=== PATIENT | female | born 1945 | race Caucasian/White ===

== ENCOUNTER → 2023-03-04 13:13 | Outpatient (BNVA) | payer OTHER, MEDICARE, SELFPAY | PROVIDERS: PCP Internal Medicine; Visit Provider Nurse Practitioner Family | DX: G20 Parkinson's disease (principal); R26.9 Unspecified abnormalities of gait and mobility | CPT/HCPCS: 99212 ==

== ENCOUNTER 2023-09-04 14:37 | Outpatient (AMB) | payer MEDICARE, SELFPAY ==
[2023-09-04 14:50] VITALS: BP 128/70; BMI 23.3
--- NOTE | 2023-09-04 14:50 | MHC.OFFVIS ---
Intake Vital Signs 09/04/23 14:50 Height 5 ft 2 in Weight 127 lb 8 oz BMI 23.3 BP 128/70 Blood Pressure Location Rt brachial Position Sitting Intake Visit Reasons: 6m follow up/ LVM Intake Note: Patient presents for 6 month follow up Allergies No Known Allergies Allergy (Verified 09/04/23 14:53) Medication List - Last Reconciled 09/04/23 by LUPIS Berry carbidopa-levodopa 25-100 mg 1.5 tab qam, 1.5 tab q afternoon, 1 tab qhs orally .; 90 days carvedilol 12.5 mg PO BID furosemide 40 mg PO DAILY levetiracetam 750 mg PO BID potassium chloride ER 10 mEq PO DAILY valsartan mg PO warfarin 2.5 mg PO DAILY HPI HPI Comments History of Present Illness Details 77-yr-old female presents for f/u visit, accompanied by her dtr. Pt's current PD medication regimen: CD-LD 25-100mg 1.5-1.5-1 tab)s) Do medication effects last between doses: Unsure Pt's primary concerns are: Pt would like to discuss diagnostic options to confirm PD dx. Pt has had a recent PNA vs CHF. Pt has been having more HTN. ADL's: Ind. Writing is more shaky but legible. Swallowing: None Cough: None Drooling: None Orthostatic lightheadedness: Denies. But does has some brief dyspnea upon lying down. Constipation: None : Some mild urinary incontinence Freezing: Not sure Stiffness: None Tremor: None Falls: None. Using a 4-wheeled walker now. Feels imbalanced w/o her walker. Hallucinations: None Memory: Some repeating. But no significant STM difficulties. Sleep: Sleeps well. Exercise: Not much exercise. [facility] Medical History (Updated 09/08/23 @ 19:08 by LUPIS Berry) HLD (hyperlipidemia) HTN (hypertension) Stroke Headache Seizure A-fib Surgical History History of permanent cardiac pacemaker placement Family History Mother Heart disease A-fib Lung mass Social History Household Members: Spouse Alcohol intake: never Patient Tobacco Use Status: Never used Tobacco Tobacco use type: Cigarette Review of Systems Const All systems reviewed & are unremarkable except as noted in HPI and below Physical Exam Vital Signs: Last Vital Signs BP 128/70 09/04/23 14:50 BMI result Body Mass Index 23.3 Const General: cooperative and no acute distress Resp Effort & Inspection: normal respiratory effort and able to speak in complete sentences Neuro Other: General: A&O x's 3 Expression: Mild decreased expression Voice: Soft voice Tremor: None Tone: Mild BUE tone Dyskinesia: None FFM: Mild bradykinesia Foot taps: Mild bradykinesia Gait: Slow to stand, decreased arm swing, very short steps w/ low floor clearance w/o walker, short steps but btter and more steady with walker. Psych: Pleasant affect, cooperative Assessment & Plan Assessment & Plan (1) Parkinson's disease: Code(s): G20 - Parkinson's disease (2) Gait difficulty: Code(s): R26.9 - Unspecified abnormalities of gait and mobility (3) Urinary incontinence: Code(s): R32 - Unspecified urinary incontinence (4) Stroke: Comment: stroke f/b 1 seizure (late )- initially treated with Phenytoin and then switched over to Keppra- no residual effect from stroke Code(s): I63.9 - Cerebral infarction, unspecified Plan Increase Sinemet 25-100mg from 1.5-1.5-1 tab(s) to 2 - 1.5 - 1. Walk w/ walker. Brain MRI w/o- to assess for NPH, status of CV vascular ischemia burden. DaTscan to assess for dopaminergic deficits in basal ganglia ? f/u in 6 months or sooner prn. Orders: Orders MR head/brain wo con 09/04/23 G20.A1 - Parkinson's disease without dyskinesia, without mention of fluctuations, I63.9 - Cerebral infarction, unspecified, R26.9 - Unspecified abnormalities of gait and mobility DaTscan 09/04/23 G20 - Parkinson's disease, I63.9 - Cerebral infarction, unspecified, R26.9 - Unspecified abnormalities of gait and mobility Medications: Changed From carbidopa-levodopa 25-100 mg 1.5 tab qam, 1.5 tab q afternoon, 1 tab qhs orally .; 90 days 360 tabs 1RF To carbidopa-levodopa 25-100 mg 2 tabs qam, 1.5 tabs q afternoon, 1 tab qhs orally .; 90 days 405 tabs 1RF Coding Level of Care Code Est Pt Level 4 (12955) Diagnoses Parkinson's disease G20 Gait difficulty R26.9 Urinary incontinence R32 Stroke I63.9
== END 2023-09-04 15:34 | disposition home or self-care (01) ==
PROVIDERS: PCP Internal Medicine; Visit Provider Nurse Practitioner Family
DX: G20.A1 Parkinson's disease without dyskinesia, without mention of fluctuations (principal); R26.9 Unspecified abnormalities of gait and mobility; R32 Unspecified urinary incontinence; Z86.73 Personal history of transient ischemic attack (TIA), and cerebral infarction without residual deficits
CPT/HCPCS: 99214

== ENCOUNTER → 2023-09-04 14:37 | Outpatient (BNVA) | payer MEDICARE, SELFPAY | PROVIDERS: PCP Internal Medicine; Visit Provider Nurse Practitioner Family | DX: G20.A1 Parkinson's disease without dyskinesia, without mention of fluctuations (principal); R26.9 Unspecified abnormalities of gait and mobility; R32 Unspecified urinary incontinence; Z86.73 Personal history of transient ischemic attack (TIA), and cerebral infarction without residual deficits | CPT/HCPCS: 99212 ==

== ENCOUNTER 2024-03-03 15:58 | Outpatient (AMB) | payer MEDICARE, SELFPAY ==
--- NOTE | 2024-03-03 15:59 | MHC.OFFVIS ---
Intake Visit Reasons: 6 mo f/u-LVM Intake Note: Patient has no issues or concerns Allergies No Known Allergies Allergy (Verified 03/03/24 15:59) Medication List - Last Reconciled 03/03/24 by LUPIS Berry carbidopa-levodopa 25-100 mg 2 tabs qam, 1.5 tabs q afternoon, 1 tab qhs orally .; 90 days carvedilol 12.5 mg PO BID furosemide 40 mg PO DAILY levetiracetam 750 mg PO BID potassium chloride ER 10 mEq PO DAILY valsartan mg PO warfarin 2.5 mg PO DAILY HPI Comments Details: 78-yr-old female presents for f/u televideo visit via [email or web address], accompanied by her dtr. Pt's current PD medication regimen: CD-LD 25-100mg 2 - 1.5 - 1 tab(s). Do medication effects last between doses: Unsure Pt's primary concerns are: Pt would like to discuss diagnostic options to confirm PD dx. Pt did not have brain MRI d/t pacemaker is not MRI compatible- thus, order was placed for Head CT, however they decided not to have this done- as results would not likely chnage plan. Pt has an increase in carvedilol and valsartan doses- her BP is improved w/ SBP 140s. Recent echocardiogram- stable valvular dz and cardiomyopathy- suspected to be d/t h/o rheumatic fever. She has good days and bad days. Overall tries to be cautious. ADL's: Ind. Writing is a little smaller. Voice- softer Swallowing: No issues Cough: None Drooling: None Orthostatic lightheadedness: Denies. Constipation: None : Some mild urinary incontinence- not frequent, maybe some functional/stress inc- is on Furosemide. Freezing: Some slowness, seems stuck can occur through doorways, crossing an elevator threshold, and going down the stairs. Has stairs to leave her home- lives in a single family 2 story home but the kitchen and bedroom are upstairs. Stiffness: None Tremor: None Falls: None. Using a 4-wheeled walker now. Feels imbalance w/o her walker. Hallucinations: None Memory: Some repeating. But no significant STM difficulties. Able to use her tablet, able to pay her bills. Sleep: Sleeps well. Exercise: Not much exercise. PFSH Medical History (Updated 11/27/23 @ 09:42 by LUPIS Berry) Parkinson's disease HLD (hyperlipidemia) HTN (hypertension) Stroke Headache Seizure A-fib Surgical History History of permanent cardiac pacemaker placement Family History Mother Heart disease A-fib Lung mass Social History Household Members: Spouse Alcohol intake: never Patient Tobacco Use Status: Never used Tobacco Tobacco use type: Cigarette Physical Exam Const General: cooperative and no acute distress Resp Effort & Inspection: normal respiratory effort and able to speak in complete sentences Neuro Other: General: A&O x's 3 Expression: Slight decrease expression Voice: Soft voice Telehealth Telehealth Telehealth Platform: [email or web address] Location of provider rendering services: practice address Location of patient: address on file Patient Identification confirmed using: Name, : Yes Telehealth method: video Patient verbally consented to treatment: Yes Patient verbally consented to billing insurance company: Yes Patient informed of any privacy concerns related to visit: Yes Minutes spent on Phone/Video with Pt.: 23 Assessment & Plan Assessment & Plan (1) Parkinson's disease without dyskinesia: Code(s): G20.A1 - Parkinson's disease without dyskinesia, without mention of fluctuations Category: Medical (2) Gait difficulty: Code(s): R26.9 - Unspecified abnormalities of gait and mobility Category: Medical Plan Continue Sinemet 25-100mg- 2 - 1.5 - 1 tabs. Walk w/ walker. Try tapping hip or stepping inplace when stuck. Hold Brain MRI and CT orders. Will re-order DaTscan to assess for dopaminergic deficits in basal ganglia Consider revisiting PT for gait eval. ? f/u in 6 months or sooner prn. Orders: Orders DaTscan Today G20.A1 - Parkinson's disease without dyskinesia, without mention of fluctuations, I63.9 - Cerebral infarction, unspecified, R26.9 - Unspecified abnormalities of gait and mobility Coding Level of Care Code Tele Est Pt Level 4 (99503) Diagnoses Parkinson's disease without dyskinesia G20.A1 Gait difficulty R26.9
== END 2024-03-03 16:30 | disposition home or self-care (01) ==
LOC: HO.HSMS 15:58
PROVIDERS: PCP Internal Medicine; Visit Provider Nurse Practitioner Family
DX: G20.A2 Parkinson's disease without dyskinesia, with fluctuations (principal); R26.9 Unspecified abnormalities of gait and mobility
CPT/HCPCS: 99214

== ENCOUNTER → 2024-03-03 15:58 | Outpatient (BNVA) | payer MEDICARE, SELFPAY | PROVIDERS: PCP Internal Medicine; Visit Provider Nurse Practitioner Family ==

== ENCOUNTER 2024-09-22 08:12 | Outpatient (AMB) | payer MEDICARE, SELFPAY ==
--- NOTE | 2024-09-22 08:12 | A.OFFVIS_ITS ---
Intake Visit Reasons: Follow up - Facetime Intake Note: patient presents for follow up Allergies No Known Allergies Allergy (Verified 09/22/24 08:12) Medication List - Last Reconciled 09/22/24 by LUPIS Berry carbidopa-levodopa 25-100 mg 2 tabs qam, 2 tabs q afternoon, 1 tab qhs orally 90 days carvedilol 12.5 mg PO BID furosemide 40 mg PO DAILY levetiracetam 750 mg PO BID memantine 7 mg PO DAILY 30 days potassium chloride ER 10 mEq PO DAILY valsartan mg PO warfarin 2.5 mg PO DAILY HPI Comments Details: 78-yr-old female presents for f/u televideo visit via [employer], accompanied by her dtr. Pt's current PD medication regimen: CD-LD 25-100mg 2 - 1 - 1 tab(s)- does not like to cut the tabs. Do medication effects last between doses: Unsure Pt's primary concerns are: Pt would like to discuss diagnostic options to confirm PD dx. 04/23/2024 brain alex SPECT study: Decreased activity in the right basal ganglia, specifically within the right putamen with adequate radiotracer uptake at the right caudate nucleus. Left basal ganglia normal appearance. She has good days and bad days. Overall tries to be cautious. ADL's: Ind. Writing is a little smaller. Voice- softer Swallowing: No issues Cough: None Drooling: None Orthostatic lightheadedness: Denies. Constipation: None- more prone to loose stools. : Some mild urinary incontinence- not frequent, stress inc- is on Furosemide. Freezing: Stable- some slowness, seems stuck can occur through doorways, crossing an elevator threshold, and going down the stairs. Has stairs to leave her home- lives in a single family 2 story home but the kitchen and bedroom are upstairs. Stiffness: None Tremor: None Falls: None. Using a 4-wheeled walker now. Feels imbalance w/o her walker. Hallucinations: None Memory: Some repeating herself- however patient does not recall repeating herself. Patient denies significant STM difficulties. Able to use her tablet, able to pay her bills. Daughter reports patient has a history of anemia. Daughter wonders if we could consider a trial of donepezil. Sleep: Sleeps well. Exercise: Not much exercise. PFSH Medical History (Updated 09/22/24 @ 12:48 by LUPIS Berry) Anemia Parkinson's disease HLD (hyperlipidemia) HTN (hypertension) Stroke Headache Seizure A-fib Surgical History History of permanent cardiac pacemaker placement Family History Mother Heart disease A-fib Lung mass Social History Household Members: Spouse Alcohol intake: never Patient Tobacco Use Status: Never used Tobacco Tobacco use type: Cigarette Physical Exam Const General: cooperative and no acute distress Resp Effort & Inspection: normal respiratory effort and able to speak in complete sentences Neuro Other: General: A&O x's 3 Expression: Slight decrease expression Voice: Soft voice Telehealth Telehealth Telehealth Platform: [employer] Location of provider rendering services: practice address Location of patient: address on file Patient Identification confirmed using: Name, : Yes Telehealth method: video Patient verbally consented to treatment: Yes Patient verbally consented to billing insurance company: Yes Patient informed of any privacy concerns related to visit: Yes Minutes spent on Phone/Video with Pt.: 44 Assessment & Plan Assessment & Plan (1) Parkinson's disease without dyskinesia: Code(s): G20.A1 - Parkinson's disease without dyskinesia, without mention of fluctuations Category: Medical (2) Gait difficulty: Code(s): R26.9 - Unspecified abnormalities of gait and mobility Category: Medical (3) Cognitive changes: Code(s): R41.89 - Other symptoms and signs involving cognitive functions and awareness Category: Medical Plan Reviewed DaTscan results: Consistent with dopaminergic deficit in the right basal ganglia, likely PD versus vascular PD, which is likely contributing to patient's gait disorder. Increase CD-LD IR 25-100mg from 2 - 1.5 - 1 tabs to 2 - 2 -1- in hopes this helps gait. Walk w/ walker. Try tapping hip or stepping inplace when stuck. Discuss referring patient for home PT, however patient declines as she does not want anybody coming to the house. Will check labs for common etiologies of cognitive symptoms- repeating herself and mild STM lapses. Will mail lab slips patient. Encourage patient to engage in regular cognitive and socially stimulating activities. Stress importance of regular physical activity for cognitive well- being. Would avoid donepezil use due to current cardiovascular symptoms. Start memantine ER 7 mg q.d. times 30 days, then will increase to 14 mg q.d. for 30 days, then 21 mg q.d. for 30 days, and then 28 mg q.d. patient and daughter will update us with any untoward effects. ? f/u in 6 months or sooner prn. Orders: Orders Complete Blood Count Auto Diff Today D64.9 - Anemia, unspecified, D69.6 - Thrombocytopenia, unspecified, G20.A1 - Parkinson's disease without dyskinesia, without mention of fluctuations Comprehensive Met. Panel Today D64.9 - Anemia, unspecified, D69.6 - Thrombocytopenia, unspecified, G20.A1 - Parkinson's disease without dyskinesia, without mention of fluctuations Homocysteine Today D64.9 - Anemia, unspecified, D69.6 - Thrombocytopenia, unspecified, G20.A1 - Parkinson's disease without dyskinesia, without mention of fluctuations Vitamin B12 and Folate Today D64.9 - Anemia, unspecified, D69.6 - Thrombocytopenia, unspecified, G20.A1 - Parkinson's disease without dyskinesia, without mention of fluctuations TSH reflex Free T4 Today D64.9 - Anemia, unspecified, D69.6 - Thrombocytopenia, unspecified, G20.A1 - Parkinson's disease without dyskinesia, without mention of fluctuations Erythrocyte Sedimentation Rate Today D64.9 - Anemia, unspecified, D69.6 - Thrombocytopenia, unspecified, G20.A1 - Parkinson's disease without dyskinesia, without mention of fluctuations Methylmalonic Acid Today D64.9 - Anemia, unspecified, D69.6 - Thrombocytopenia, unspecified, G20.A1 - Parkinson's disease without dyskinesia, without mention of fluctuations IRON PROFILE Today D64.9 - Anemia, unspecified, D69.6 - Thrombocytopenia, unspecified, G20.A1 - Parkinson's disease without dyskinesia, without mention of fluctuations Ferritin Today D64.9 - Anemia, unspecified, D69.6 - Thrombocytopenia, unspecified, G20.A1 - Parkinson's disease without dyskinesia, without mention of fluctuations Syphilis Screen Today D64.9 - Anemia, unspecified, D69.6 - Thrombocytopenia, unspecified, G20.A1 - Parkinson's disease without dyskinesia, without mention of fluctuations CRP High Sensitivity Today D64.9 - Anemia, unspecified, D69.6 - Thrombocytopenia, unspecified, G20.A1 - Parkinson's disease without dyskinesia, without mention of fluctuations Folate Today D64.9 - Anemia, unspecified, D69.6 - Thrombocytopenia, unspecified, G20.A1 - Parkinson's disease without dyskinesia, without mention of fluctuations Medications: New memantine then stop and increase to 14mg qd 7 mg PO DAILY 30 ea 0RF 30 days Changed From carbidopa-levodopa 25-100 mg 2 tabs qam, 1.5 tabs q afternoon, 1 tab qhs orally .; 90 days 405 tabs 1RF To carbidopa-levodopa 25-100 mg 2 tabs qam, 2 tabs q afternoon, 1 tab qhs orally 450 tabs 1RF 90 days Coding Level of Care Code Tele Est Pt Level 4 (47301) Diagnoses Parkinson's disease without dyskinesia G20.A1 Gait difficulty R26.9 Cognitive changes R41.89
== END 2024-09-25 08:46 | disposition home or self-care (01) ==
LOC: HO.HSMS 08:12
PROVIDERS: PCP Internal Medicine; Visit Provider Nurse Practitioner Family
DX: G20.A1 Parkinson's disease without dyskinesia, without mention of fluctuations (principal); R26.9 Unspecified abnormalities of gait and mobility; R41.89 Other symptoms and signs involving cognitive functions and awareness
CPT/HCPCS: 99215

== ENCOUNTER 2025-08-31 08:55 | Outpatient (AMB) | payer MEDICARE, SELFPAY ==
--- NOTE | 2025-08-31 08:41 | A.OFFVIS_ITS ---
Intake Visit Reasons: med follow up Intake Note: patient presents for follow up User Interface Designer Required: No Accompanied by: Daughter Allergies No Known Allergies Allergy (Verified 09/22/24 08:12) Medication List - Last Reconciled 08/31/25 by LUPIS Berry atorvastatin (Lipitor) 40 mg PO BEDTIME carbidopa-levodopa 25-100 mg 2 tabs qam, 2 tabs q afternoon, 1 tab qhs orally 90 days carvedilol 12.5 mg PO BID furosemide 40 mg PO DAILY levetiracetam 750 mg PO BID 30 days memantine 10 mg PO BID 30 days potassium chloride ER 10 mEq PO DAILY spironolactone 25 mg PO DAILY valsartan mg PO warfarin 2.5 mg PO DAILY HPI Comments Details: 79-yr-old female presents for f/u televideo visit via [employer], accompanied by her dtr. Interval medical changes: pacemaker repair, which was followed by episodes of hypotension, which have since resolved. Pt's current PD medication regimen: CD-LD 25-100mg 2 - 2 - 1 tab(s)- does not like to cut the tabs. Do medication effects last between doses: Unsure Pt's primary concerns are: No specific concerns today, patient is doing overall better. 04/23/2024 brain alex SPECT study: Decreased activity in the right basal ganglia, specifically within the right putamen with adequate radiotracer uptake at the right caudate nucleus. Left basal ganglia normal appearance. ADL's: Ind. Writing is a little smaller. Still cooks- but may need to sit for longer prep times. Voice- softer Swallowing: Over the summer, when eating ice cream, she would have some episodes of esophageal spasm. In the past few weeks, she also has postprandial epigastric discomfort. Her dtr notes she does not tend to eat large meals. Denies NSAID use d/t warfarin tx. Cough: None Drooling: None Orthostatic lightheadedness: Denies. Constipation: None- more prone to loose stools. : Some mild urinary incontinence- not frequent, stress inc- is on Furosemide. Freezing: Stable- some slowness through doorways and stairs. Dtr states has been walking a bit better more recently. Has stairs to leave her home- lives in a single family 2 story home but the kitchen and bedroom are upstairs. Stiffness: None Tremor: None Falls: Using a 4-wheeled walker now. Feels imbalanced w/o her walker. Dtr has a transport w/c for longer distances. Hallucinations: None Memory: Some repeating herself- but pt feels her memory is fine. May take her memantine QOD. Patient denies significant STM difficulties. Able to use her tablet, able to pay her bills. Sleep: Sleeps well. Exercise: Not much exercise. [facility] Medical History (Updated 08/31/25 @ 09:25 by LUPIS Berry) Anemia Parkinson's disease HLD (hyperlipidemia) HTN (hypertension) Stroke Headache Seizure A-fib Surgical History History of permanent cardiac pacemaker placement Family History Mother Heart disease A-fib Lung mass Social History Household Members: Spouse Alcohol intake: never Patient Tobacco Use Status: Never used Tobacco Tobacco use type: Cigarette Physical Exam Const General: cooperative and no acute distress Resp Effort & Inspection: normal respiratory effort and able to speak in complete sentences Neuro Other: General: A&O x's 3 Expression: Slight decrease expression Voice: Soft voice Tremor: none Telehealth Telehealth Telehealth Platform: [employer] Location of provider rendering services: practice address Location of patient: address on file Patient Identification confirmed using: Name, : Yes Telehealth method: video Patient verbally consented to treatment: Yes Patient verbally consented to billing insurance company: Yes Patient informed of any privacy concerns related to visit: Yes Minutes spent on Phone/Video with Pt.: 18 Assessment & Plan Assessment & Plan (1) Parkinson's disease without dyskinesia: Code(s): G20.A1 - Parkinson's disease without dyskinesia, without mention of fluctuations Category: Medical Qualifiers: Fluctuating manifestations: without fluctuating manifestations Qualified Code(s): G20.A1 - Parkinson's disease without dyskinesia, without mention of fluctuations (2) Gait difficulty: Code(s): R26.9 - Unspecified abnormalities of gait and mobility Category: Medical (3) Cognitive changes: Code(s): R41.89 - Other symptoms and signs involving cognitive functions and awareness Category: Medical Plan Continue CD-LD IR 25-100mg tab, 2 - 2 -1 Walk w/ walker. Try tapping hip or stepping inplace when stuck. Encourage patient to engage in regular physical, cognitive and socially stimulating activities. Stress importance of regular physical activity for cognitive well-being. Continue Memantine ER 28 mg q.d. p Daughter request handicap parking placard form be completed, we will complete once available to us? f/u in 6 months or sooner prn. Medications: Refilled carbidopa-levodopa 25-100 mg 2 tabs qam, 2 tabs q afternoon, 1 tab qhs orally 450 tabs 4RF 90 days Coding Level of Care Code Tele Est Pt Level 4 (73646) Diagnoses Parkinson's disease without dyskinesia or fluctuating manifestations G20.A1 Fluctuating manifestations: without fluctuating manifestations Gait difficulty R26.9 Cognitive changes R41.89
--- OUTSIDE RECORDS SUMMARY | 2025-08-31 09:14 | XMS_ITS | Clinical Summary ---
Author Organization [address] [place] [address] [place] [phone] Phone Care Team Providers Care Special Deputy Sheriff Name Role Phone Tulio Jacobsen MD Primary Care Provider [phone] Allergies No known active allergies Medications levETIRAcetam (KEPPRA) 750 mg tablet Take 1 Tablet by mouth 2 Times Daily. 4 Active carbidopa-levod opa (SINEMET) 25-100 mg per tablet Take 2 Tablets by mouth every morning. 1 tablet in the aternoon and one tablet at night Active atorvastatin (LIPITOR) 40 mg tablet Take 1 Tablet by mouth at bedtime. 4 Active dorzolamide-craig oloL (COSOPT) 22.3-6.8 mg/mL ophthalmic solution Place 1 Drop into both eyes 2 times daily. 1 Active latanoprost (XALATAN) 0.005 % ophthalmic solution Place 1 Drop into both eyes at bedtime. INSTILL 1 DROP IN BOTH EYES AT BEDTIME 1 Active brimonidine (ALPHAGAN) 0.2 % ophthalmic solution Place 1 Drop into both eyes 2 times daily. 1 Active cyanocobalamin, vitamin B-12, (VITAMIN B-12 ORAL) Take by mouth. Three days a week Active potassium chloride (KLOR-CON M20) 20 mEq CR tablet Take 1 tablet (20 mEq total) by mouth 1 (one) time each day. Tablet may be swallowed whole (do not crush/chew/suck on) OR broken in half and each half swallowed separately OR dissolved (whole tablet) in ~4 ounces of water (allow ~2 minutes to dissolve, stir well and administer immediately). Active furosemide (LASIX) 40 mg tablet Take 1 tablet (40 mg total) by mouth 1 (one) time each day. 90 each 3 5 03/31/20 26 Active warfarin (COUMADIN) 2.5 mg tablet Take 2 tablets (5 mg total) by mouth 1 (one) time each day with dinner. 180 tablet 1 5 Active carvediloL (COREG) 12.5 mg tablet Take 1 tablet (12.5 mg total) by mouth 2 (two) times a day with meals. 180 tablet 3 5 Active spironolactone (ALDACTONE) 25 mg tablet TAKE 0.5 TABLETS BY MOUTH 1 TIME EACH DAY. 45 tablet 3 5 Active Active Problems Problem Noted Date Diagnosed Date Atrial fibrillation ([facility] V24, [facility] V28) 1 10/05/2023 Overview (03/31/2025): AV Erum ablation Single-chamber pacemaker, lead replacement and generator change 12/2024 Anticoagulated with Coumadin Assessment & Plan (08/12/2025 1:50 PM EST): Continue Coumadin in light of valvular atrial fibrillation for CVA prophylaxis, status post AV node ablation with pacemaker Assessment & Plan (03/31/2025 10:18 PM EDT): The patient's heart rate is supported post AV erum ablation by her pacemaker. Her breathlessness improved with lead replacement and generator change raising a question of inadequate pacing as a possible etiology of at least some of her breathlessness. Continue in office surveillance. Remote monitoring has been offered to the patient, but historically, it has been cost prohibitive. Her daughter is looking into this Given her rheumatic mitral stenosis, anticoagulation with warfarin is her only option. She has not had any bleeding issues Assessment & Plan (12/28/2024 8:19 AM EDT): The patient's atrial fibrillation rate remains supported by her pacemaker. She is anticoagulated with Coumadin given her multivalve disease. Continue current treatment plan FDC (current) use of anticoagulants 2023 History of CVA (cerebrovascular accident) 2023 Gait disturbance 07/02/2021 Essential hypertension 01/16/2021 Assessment & Plan (08/12/2025 1:50 PM EST): Well-controlled on current regimen, continue Assessment & Plan (03/31/2025 10:15 PM EDT): Blood pressure reasonable to add back low-dose spironolactone. Continue her carvedilol and furosemide at current doses. Assessment & Plan (12/28/2024 8:23 AM EDT): Patient's blood pressure somewhat robust today on diuretic and ARB. 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 Reviewed possibility of referral for LITTLE of the tricuspid valve given severe tricuspid regurgitation. Though she does not appear to be in any kind of right heart failure at this time. Assessment & Plan (03/31/2025 10:18 PM EDT): The patient's echocardiogram is unchanged in the last year. 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 Her right sided heart failure symptoms seem to be well-managed with carvedilol, furosemide, and previously spironolactone. As such, we will resume her spironolactone and follow her labs. Assessment & Plan (12/28/2024 8:24 AM EDT): Update echocardiogram as above Vitamin D deficiency 09/02/2013 Hyperlipidemia with target LDL less than 70 05/31 Assessment & Plan (03/31/2025 10:18 PM EDT): Well-controlled lipid profile without known CAD on current dose statin. Continue Assessment & Plan (12/28/2024 8:24 AM EDT): Very well-controlled lipid profile without known CAD on current dose statin. Continue CKD (chronic kidney disease) stage 3, GFR 30-59 ml/min (CMS/HCC V24, CMS/HCC V28) 05/02/2012 Osteopenia 02/06/2010 Elevated serum alkaline phosphatase level 2009 Overview (08/26/2024): Elevated GGTP. Likley due to phenytoin use. Atrial thrombus 06/05/2009 Cardiac pacemaker in situ 09/17/2005 Overview (12/28/2024): - [employer] device placed in 2012 after AV node ablation Assessment & Plan (08/12/2025 1:50 PM EST): Continue device clinic follow-up. Device check performed today. Assessment & Plan (12/28/2024 8:20 AM EDT): The patient does not have remote monitoring of her pacemaker. Therefore, continue in office device checks. She will have her device check today following this appointment Congestive heart failure (CMS/HCC V24, CMS/[facility] V 28) 09/17/2005 Overview (08/12/2025): - Very difficult to gauge NYHA class due to baseline limited mobility, but likely NYHA class III heart failure symptoms at baseline -Updated echocardiogram 02/2025 shows normal LVEF 55 to 60%, mild concentric LVH, severely enlarged RV with normal RV systolic function, mildly thickened aortic valve leaflets, mild mitral stenosis with rheumatic appearing valve, severe TR and a small pericardial effusion, unchanged when compared to 12/2023 Assessment & Plan (08/12/2025 1:50 PM EST): Euvolemic on exam. Doing much better after her device revision. Will await results of today's device check. Continue current spironolactone, furosemide. I do not believe we have trialed her on SGLT2 inhibitor either. I will address this with Patricia when she sends me her [employer] message. There may have been a reason why we held off. I will plan to see her again in 6 months. Assessment & Plan (03/31/2025 10:16 PM EDT): From a heart failure standpoint, she appears euvolemic aside from left greater than right lower extremity edema. Her daughter tells me that spironolactone managed this edema previously quite well. 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 Given that her edema is bothersome, and her platelets have improved, will retry low-dose spironolactone 12.5 mg once a day, discontinue her potassium supplementation, and update a BMP and a CBC to follow her platelets in about a week's time. I will notify her daughter once results are available to me Assessment & Plan (12/28/2024 8:23 AM EDT): The patient has ongoing evidence of right-sided volume overload including ascites and lower extremity edema. She states that her breathlessness is at least somewhat worse than when I saw her last time. Dr. Samaniego would prefer to avoid SGLT2's until other options have been exhausted given lack of data with valvular heart disease. As such, will increase her furosemide to 40 mg daily as a permanent increase and then add spironolactone 12.5 mg daily after 7 days of increased diuretic. She will obtain a basic metabolic panel late next week. She can discontinue her potassium supplementation when she starts her spironolactone. The patient's daughter understands and agrees. Will update her echocardiogram in about 3 months time just prior to her next office visit. If she continues with excess volume, can switch her furosemide to either Bumex or torsemide which may have better bioavailability. But to start, will increase her furosemide Convulsions (CMS/HCC V24, CMS/HCC V28) 5 Resolved Problems Problem Noted Date Diagnosed Date Resolved Date SSS (sick sinus syndrome) ([facility] MS/HCC V24, CMS/HCC V28) 10/09/2023 08/12/2025 Overview (08/26/2024): Last Assessment & Plan: Normally functioning pacemaker. Continue in-office surveillance as per protocol. Mitral stenosis 09/17/2005 08/12/2025 Overview (03/31/2025): mild mitral stenosis with rheumatic appearing valve Assessment & Plan (03/31/2025 10:16 PM EDT): The patient continues with mild rheumatic mitral stenosis. Continue periodic surveillance Assessment & Plan (12/28/2024 8:23 AM EDT): Update her echocardiogram as above Encounters Date Type Department Care Team Description 08/19/2025 Telephone Coumadin [facility] - [address] [phone] Tulio Jacobsen MD 08/12/2025 11:00 AM EST Ancillary Procedure [facility] [address] [place] [address] Encounter for adjustment or management of cardiac device 08/12/2025 10:20 AM EST Office Visit [facility] [address] [place] [address] Danii Samaniego MD Chronic diastolic congestive heart failure (CMS/HCC V24, CMS/HCC V28) (Primary Dx); Longstanding persistent atrial fibrillation (CMS/HCC V24, CMS/HCC V28); Essential hypertension; Valvular heart disease; Cardiac pacemaker in situ 08/03/2025 Anticoagulation - Warfarin Visit Coumadin [address] [phone] Tulio Jacobsen MD Longstanding persistent atrial fibrillation (CMS/HCC V24, CMS/HCC V28) (Primary Dx); 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; History of CVA (cerebrovascular accident) 07/27/2025 Anticoagulation - Warfarin Visit Coumadin [address] [phone] Tulio Jacobsen MD Longstanding persistent atrial fibrillation (CMS/HCC V24, CMS/HCC V28) (Primary Dx); 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; History of CVA (cerebrovascular accident) 07/20/2025 Anticoagulation - Warfarin Visit [address] [phone] Tulio Jacobsen MD Longstanding persistent atrial fibrillation (CMS/HCC V24, CMS/HCC V28) (Primary Dx); 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; History of CVA (cerebrovascular accident) 07/12/2025 [facility] [address] [phone] Tulio Jacobsen MD Longstanding persistent atrial fibrillation (CMS/HCC V24, CMS/HCC V28) (Primary Dx); 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; History of CVA (cerebrovascular accident) 07/05/2025 Anticoagulation - Warfarin Visit [address] [phone] Sabra Kothari LPN Longstanding persistent atrial fibrillation (CMS/HCC V24, CMS/HCC V28) (Primary Dx); FDC (current) use of anticoagulants; History of CVA (cerebrovascular accident) 06/24/2025 Anticoagulation - Warfarin Visit [address] [phone] Tulio Jacobsen MD Longstanding persistent atrial fibrillation (CMS/HCC V24, CMS/HCC V28) (Primary Dx); FDC (current) use of anticoagulants; History of CVA (cerebrovascular accident) 06/14/2025 [facility] [address] [phone] Jenniffer Dunbar PA 06/14/2025 Anticoagulation - Warfarin Visit Coumadin [address] [phone] Sabra Kothari LPN Longstanding persistent atrial fibrillation (CMS/HCC V24, CMS/HCC V28) (Primary Dx); 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; History of CVA (cerebrovascular accident) 06/08/2025 4:00 PM EDT Office Visit Adult Medicine [address] [phone] Jenniffer Dunbar PA Essential hypertension (Primary Dx); Hyperlipidemia with target LDL less than 70; Vitamin D deficiency; Parkinson's disease, unspecified whether dyskinesia present, unspecified whether manifestations fluctuate (CMS/HCC V24, CMS/HCC V28); Atrial fibrillation, unspecified type (CMS/HCC V24, CMS/HCC V28); Thrombocytopenia (CMS/HCC V24) 06/07/2025 Anticoagulation - Warfarin Visit Coumadin [address] [phone] Sabra Kothari LPN Longstanding persistent atrial fibrillation (CMS/HCC V24, CMS/HCC V28) (Primary Dx); FDC (current) use of anticoagulants; History of CVA (cerebrovascular accident) from Last 3 Months Immunizations Immunization Administration Dates Next Due Influenza trivalent, 0.5mL ( Fluad) 65yo and older 07/09/2024,07/10/2022 Influenza trivalent, 0.5mL, preservative free (Fluarix; FluLaval; Fluzone) ages 6mo and older (Afluria) 3 years and older 06/18/2012,06/19/2010,07/28/2007 Pneumococcal conjugate 13 va lent (Prevnar 13, PCV13) 2mo and older 12/14/2016 Pneumococcal conjugate 20 va lent (Prevnar 20, PCV 20) 2mo and older 07/09/2024 Pneumococcal polysaccharide 23 valent (Pneumovax 23) 2yo and older 07/28/2007 Surgical History Surgery Date Site/Laterality Comments COLONOSCOPY 01/18/10 PROCEDURE: HISTORICAL COLONOSCOPY; COMMENT: diverticulosis; repeat in ten years OTHER SURGICAL HISTORY PROCEDURE: MT UNLISTED PROCEDURE CARDIAC SURGERY; COMMENT: erum ablation for atrial fibrillation, pacemaker Medical History Medical History Date Comments Atrial fibrillation ([facility] V24, [facility] V28) 09/17/2005 DX:Atrial fibrillation (HCC) Cardiac pacemaker in situ 09/17/2005 DX:Car diac pacemaker in situ Congestive heart failure, unspecified 09/17/2005 DX:Congestive heart failure, unspecified Pure hypercholesterolemia 09/17/2005 DX:Pur e hypercholesterolemia Cardiac pacemaker in situ 09/17/2005 DX:Car diac pacemaker in situ Atrial thrombus 06/05/2009 DX:Atrial thromb us Mitral stenosis 09/17/2005 DX:Mitral stenos is Other convulsions 09/17/2005 DX:Other convu lsions Osteopenia DX:Osteopenia Glaucoma DX:Glaucoma Thrombocytopenia ([facility] V24) D X:Thrombocytopenia (HCC) Family History Medical History Relation Name Comments Other: GI bleed Father Other: cardiac Mother Breast cancer Neg Hx Relation Name Status Comments Father Mother Social History Tobacco Use Types Packs/Day Years Used Date Smoking Tobacco: Never Smokeless Tobacco: Never Tobacco Cessation:Counseling Given: Not Answered Alcohol Use Standard Drinks/Week Comments No 0 (1 standard drink = 0.6 oz pur e alcohol) Housing Instability Answer Date Recorde d Are you worried that in the next 2 months you may not have stable housing? Patient declined 06/08/2025 Food Access & Nutrition Answer Date Rec orded Do you have access to a vari ety of food including fruits and vegetables? Patient declined 06/08/2025 Health Literacy Answer Date Recorded How often do you need to hav e someone help you when you read instructions, pamphlets, or other written material from your doctor or pharmacy? Patient declined 06/08/2025 Caregiver: How often do you need to have someone help you when you read instructions, pamphlets, or other written material from your doctor or pharmacy? Not on file 025 Financial Risk Answer Date Recorded How hard is it for you to pa y for the very basics like food, housing, medical care, and air conditioning / heating? Patient declined 06/08/2025 Transportation Answer Date Recorded Has the lack of transportati on kept you from meetings, work, or from getting things needed for daily living? Patient declined 06/08/2025 Has the lack of transportati on kept you from medical appointments or from getting medications? Patient declined 06/08/2025 Social Isolation Answer Date Recorded How often do you feel lonely or isolated from those around you? Patient declined 06/08/2025 Food Risk Answer Date Recorded Within the past 12 months we worried whether our food would run out before we got money to buy more. Patient declined 025 Within the past 12 months th e food we bought just didn't last and we didn't have money to get more. Patient declined 05/2025 Dependent Care Answer Date Recorded Do you need help finding or paying for care for your loved ones. For example, teacher early childhood development or elderly care for an older adult? Patient declined 06/08/2025 Education Answer Date Recorded Do you think completing more education or training, like finishing a GED, going to college, or learning a trade, would be helpful for you? Patient declined 06/08/2025 Employment and Income Answer Date Recor ded During the last four weeks, have you been actively looking for work? Patient declined 06/08/2025 Living Situation Answer Date Recorded What is your living situation? Unrecognized valu e 06/08/2025 Comments Unknown Sex and Gender Information Value Date Recorded Sex Assigned at Not on file Legal Sex Female 10:50 AM EST Gender Identity Not on file Sexual Orientation Not on file Obstetrics History Last Filed Vital Signs Vital Sign Reading Time Taken Comments Blood Pressure 120/68 08/12/2025 10:13 AM EST Pulse 67 08/12/2025 10:13 AM EST Temperature 35.7 C (96.3 F) 06/08/2025 3:39 PM EDT Respiratory Rate - - Oxygen Saturation 97% 08/12/2025 10:13 AM EST Inhaled Oxygen Concentration - - Weight 54.9 kg (121 lb) 08/12/2025 10:13 AM EST Height 160 cm (5' 3 ) 08/12/2025 10:13 AM EST Body Mass Index 21.43 08/12/2025 10:13 AM EST Plan of Treatment Upcoming Encounters Date Type Department Care Team (Late st Contact Info) Description 12/23/2025 3:45 PM EDT Office Visit Adult Medicine [address] [phone] Tulio Jacobsen MD [address] [place] [phone] 02/10/2026 3:00 PM EDT Ancillary Procedure [facility] [address] [facility] [address] [place] [phone] Health Maintenance Due Date Last Done Comments DTaP,Tdap,and Td Vaccines (1 - Tdap) 1964 Zoster Vaccines (1 of 2) 1964 RSV Immunization Adult Patients (1 - 1-dose 75+ series) 2020 COVID-19 Vaccine (3 - Pfizer risk series) 03/28/2021 02/28/2021, 02/07/2021 Falls Risk Assessment 09/08/2022 Medicare Annual Wellness Visit 09/08/2022 Influenza Vaccine (#1) 2025 , 07/10/2022, 06/18/2012, Additional history exists Hypertension/CHF/CAD Annual BMP Blood Test 05/03/2026 05/03/2025, 02/02/2025, 01/18/2025, Additional history exists Social Influencers of Health Screening 06/08/2026 06/08/2025 Osteoporosis Screening (Bone Density Screening) 03/01/2027 03/01/2017 Cholesterol Screening (Lipid Panel) 01/18/2030 01/18/2025, 07/09/2024, 07/09/2024 Hepatitis C Screening Completed 09/06/2014 Pneumococcal Vaccine: 50+ Years Completed 07/09/2024, 12/14/2016, 07/28/2007 Depression Screening Completed 06/08/2025 HIB Vaccines Aged Out No longer eligi ble based on patient's age to complete this topic HPV Vaccines Aged Out No longer eligi ble based on patient's age to complete this topic Hepatitis A Vaccines Aged Out No long er eligible based on patient's age to complete this topic Hepatitis B Vaccines Aged Out No long er eligible based on patient's age to complete this topic IPV Vaccines Aged Out No longer eligi ble based on patient's age to complete this topic MMR Vaccines Aged Out No longer eligi ble based on patient's age to complete this topic Meningococcal ACWY Vaccine Aged Out N o longer eligible based on patient's age to complete this topic Meningococcal B Vaccine Aged Out No l onger eligible based on patient's age to complete this topic RSV Immunization Patients Under 20 months Aged Out No longer eligible based on patient's age to complete this topic Varicella Vaccines Aged Out No longer eligible based on patient's age to complete this topic Medical Devices Implanted Type Area Butter Wrapper Device Identifier Shelf Expiration Date Model / Serial / Lot Abbt-Stju Accent Sr Rf [id number] Implanted: (Quantity not on file) Cardiac Pacemaker [facility] [employer] SR RF 1210 / [id number] / Abbt-Stju Assurity Mri [id number] Implanted: (Quantity not on file) Cardiac Pacemaker [facility] [employer] MRI 1272 / [id number] / Procedures Procedure Name Priority Date/Time Associated Diagnosis Comments PROTHROMBIN TIME WITH INR 08/19/2025 PROTHROMBIN TIME WITH INR Routine 08/17/2025 [facility]ARDIAC DEVICE CHECK- [facility] Routine 08/12/2025 12:31 PM EST Encounter for adjustment or management of cardiac device PROTHROMBIN TIME WITH INR 08/03/2025 PROTHROMBIN TIME WITH INR Routine 08/02/2025 PROTHROMBIN TIME WITH INR 07/26/2025 PROTHROMBIN TIME WITH INR Routine 07/26/2025 PROTHROMBIN TIME WITH INR 07/19/2025 PROTHROMBIN TIME WITH INR Routine 07/19/2025 PROTHROMBIN TIME WITH INR 07/12/2025 PROTHROMBIN TIME WITH INR Routine 07/12/2025 PROTHROMBIN TIME WITH INR 07/04/2025 PROTHROMBIN TIME WITH INR Routine 07/04/2025 PROTHROMBIN TIME WITH INR Routine 06/24/2025 PROTHROMBIN TIME WITH INR 06/23/2025 PROTHROMBIN TIME WITH INR 06/12/2025 PROTHROMBIN TIME WITH INR Routine 06/12/2025 PROTHROMBIN TIME WITH INR 06/06/2025 PROTHROMBIN TIME WITH INR Routine 06/06/2025 BASIC METABOLIC PANEL Routine 05/03/2025 2:02 PM EDT Chronic diastolic congestive heart failure (CMS/HCC V24, CMS/HCC V28) LIPID PANEL WITH REFLEX TO DIRECT LDL Routine 01/18/2025 8:24 AM EDT Hyperlipidemia LDL goal <70 DXA BONE DENSITY STUDY 1+ SITS AXIAL SKEL Routine 03/01/2017 4:17 PM EDT Other specified disorders of bone density and structure, unspecified site HEPATITIS C SCREENING Routine 09/06/2014 from Last 3 Months or Most Recently Relevant to Health Maintenance Results * Prothrombin time with INR (08/19/2025) Only the most recent of18 resultswithin the time period is included. us Provider [facility] BLOOD ORDERABLES Fin al Result * CARDIAC DEVICE [facility]- [facility] [place] (08/12/2025 12:31 PM EST) Date Time Interrogation Session [id number] CV DEVICE CHECK Implantable Pulse Generator Butter Wrapper [employer] CV DEVICE CHECK Implantable Pulse Generator Type IPG CV DEVICE CHECK Implantable Pulse Generator Model Assurity MRI 1272 CV DEVICE CHECK Implantable Pulse Generator Serial Number [id number] CV DEVICE CHECK Implantable Pulse Generator Implant Date 20250114 CV DEVICE CHECK Battery Voltage 3.010 CV D EVICE CHECK Battery Status Middle of Service CV DEVICE CHECK Nate Statistic RV Percent Paced 99.50 CV DEVICE CHECK Lead Channel Setting Sensing Sensitivity 2.00 CV DEVICE CHECK Lead Channel Impedance Value 488 CV DEVICE CHECK Lead Channel Pacing Threshold Amplitude 0.750 CV DEVICE CHECK Lead Channel Pacing Threshold Pulse Width 0.4 CV DEVICE CHECK Lead Channel RV Pacing Threshold Date 2025-08-12 CV DEVICE CHECK Lead Channel Setting Pacing Amplitude 1.130 CV DEVICE CHECK Lead Channel Setting Pacing Pulse Width 0.4 CV DEVICE CHECK Nate Setting Mode (NBG Code) VVIR CV DEVICE CHECK Nate Setting Lower Rate Limit 60 CV DEVICE CHECK Nate Setting Maximum Sensor Rate 130 CV DEVICE CHECK Date of Service 2025-10-14 CV DEVICE CHECK Anatomical Region Laterality Modality Device Interroga tion 08/12/2025 Impressions 08/13/2025 5:10 PM EST Normal In-Office: No Events * Normal Device Function * Alerts or events: None * Battery: MOS, 10.30 yrs * Sensing, impedance and thresholds reviewed and tested * 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 60 bpm * No R waves @ VVI 30 bpm * Heart Rate Histograms reviewed * Pacing and Detection Parameters were evaluated Narrative Procedure Note Charles Gonzalez MD - 08/14/2025 IMPRESSION: Normal In-Office: No Events * Normal Device Function * Alerts or events: None * Battery: MOS, 10.30 yrs * Sensing, impedance and thresholds reviewed and tested * Presenting 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 60 bpm * No R waves @ VVI 30 bpm * Heart Rate Histograms reviewed * Pacing and Detection Parameters were evaluated us Order Referral Cardiovascular CV IMPLANTABLE CAR DIAC DEVICE PROCEDURES Final Result * (ABNORMAL) Basic metabolic panel (05/03/2025 2:02 PM EDT) Sodium 138 133 - 145 mmol/L LAB CHEMISTRY METHOD 05/03/2025 5:03 PM [facility] Potassium 4.0 3.5 - 5.5 mmol/L LAB CHEMISTRY METHOD 05/03/2025 5:03 PM [facility] Chloride 104 96 - 110 mmol/L LAB CHEMISTRY METHOD 05/03/2025 5:03 PM [facility] CO2 30 21 - 32 mmol/L LAB CHEMISTRY METHOD 05/03/2025 5:03 PM [facility] Anion Gap 4 3 - 11 LAB CHEMISTRY METHOD 05/03/2025 5:03 PM [facility] Glucose 73 70 - 100 mg/dL LAB CHEMISTRY METHOD 05/03/2025 5:03 PM [facility] BUN 28(H) 5 - 25 mg/dL LAB CHEMISTRY METHOD 05/03/2025 5:03 PM EDT [facility] Creatinine 0.96 0.50 - 1.10 mg/dL LAB CHEMISTRY METHOD 05/03/2025 5:03 PM EDT [facility] eGFR 60 >=60 mL/min/1. 73m2 LAB CHEMISTRY METHOD 05/03/2025 5:03 PM EDT [facility] Comment:Calculation based on the Chronic Kidney Disease Epidemiology Collaboration (CKD-EPI) equation refit without adjustment for race. BUN/Creatinine Ratio 29.2 LAB CHEMISTRY METHOD 05/03/2025 5:03 PM EDT [facility] Calcium 10.5 8.5 - 10.5 mg/dL LAB CHEMISTRY METHOD 05/03/2025 5:03 PM [facility] Blood Venous blood specimen / Unknown Venipuncture / Unknown 05/03/2025 2:02 PM EDT 05/03/2025 2:02 PM EDT us Kasandra House NP LAB BLOOD ORDERABLES Final Resu lt [facility] [address] [place] [address], [place] [phone] * (ABNORMAL) Lipid panel with reflex to direct LDL (01/18/2025 8:24 AM EDT) Cholesterol 83 0 - 200 mg/dL LAB CHEMISTRY METHOD 01/18/2025 5:21 PM EDT [facility] Triglycerides 70 0 - 150 mg/dL LAB CHEMISTRY METHOD 01/18/2025 5:21 PM EDT [facility] HDL 32(L) >=40 mg/dL LAB CHEMISTRY METHOD 01/18/2025 5:21 PM EDT [facility] LDL Calculated 37 0 - 100 mg/dL LAB CHEMISTRY METHOD 01/18/2025 5:21 PM EDT [facility] VLDL Cholesterol Praveen 14 mg/dL LAB CHEMISTRY METHOD 01/18/2025 5:21 PM EDT [facility] Non HDL Chol. (LDL+VLDL) 51 <145 mg/dL LAB CHEMISTRY METHOD 01/18/2025 5:21 PM EDT [facility] Chol/HDL Ratio 2.6 0.0 - 4.4 LAB CHEMISTRY METHOD 01/18/2025 5:21 PM EDT [facility] Blood Venous blood specimen / Unknown Venipuncture / Unknown 01/18/2025 8:24 AM EDT 01/18/2025 8:24 AM EDT Jenniffer BENITO LAB BLOOD ORDERABLES Fi nal Result [facility] [address] [place] [address], * DXA BONE DENSITY STUDY 1+ SITS AXIAL SKEL (03/01/2017 4:17 PM EDT) Anatomical Region Laterality Modality Bone Densitometr y 12/14/2016 1:40 PM EDT Narrative 03/03/2017 2:14 PM EDT DEXA SCAN: Lumbar Spine T-score is -1.6. (SD relative to 20-29 y/o adult) Z-score is +0.6. (SD relative to age matched peers) This is consistent with osteopenia defined by WHO criteria. Left Hip T-score is -1.6. Z-score is +0.2. This is consistent with osteopenia defined by WHO criteria. Comparison exam(s): There is a statistically significant, 4.2% increase in bone density throughout the lumbar spine compared to 09/13/2014. Approximately 1.4% decrease in bone mineral density throughout the proximal left femur compared to 09/13/2014. IMPRESSION: Osteopenia by WHO criteria. This patient has a 10% risk of major osteoporotic fracture and a 1.7% risk of hip fracture over the next 10 years. (World Health Organization Fracture Risk Assessment) [facility] Department of Internal Medicine recommends using National Osteoporosis Foundation (NOF) guidelines in treatment decisions related to osteoporosis. NOF guidelines suggest considering treatment for postmenopausal women and men aged 50 or older presenting with the following: History of hip or vertebral fracture. T-score = -2.5 (DXA) at the femoral neck, total hip, or spine, after appropriate evaluation to exclude secondary causes. Low bone mass (T-score between -1.0 and -2.5 at the femoral neck or spine) AND a 10-year probability of a hip fracture = 3% OR a 10-year probability of a major osteoporosis-related fracture = 20% based on the [place]-adapted WHO algorithm Please note that all treatment decisions require clinical judgment and consideration of individual patient factors, including patient preferences, co-morbidities, previous drug use, risk factors not captured in the FRAX model (e.g., frailty, falls, vitamin D deficiency, increased bone turnover, interval significant decline in bone density) and possible under- or over-estimation of fracture risk by FRAX. Optional alternative screening schedule based on christ Sharpe., [facility] October 18, 2011 for patients with osteopenia (based on hip BMD T-score) is as follows: * advanced osteopenia (T scores -2.00 to -2.49), BMD testing every year * moderate osteopenia (T scores -1.50 to -1.99), BMD testing every 5 years mild osteopenia or normal BMD (T scores -1.50 and higher), BMD testing every 15 years Procedure Note Belen Purcell DO - 11/01/2023 DEXA SCAN: Lumbar Spine T-score is -1.6. (SD relative to 20-29 y/o adult) Z-score is +0.6. (SD relative to age matched peers) This is consistent with osteopenia defined by WHO criteria. Left Hip T-score is -1.6. Z-score is +0.2. This is consistent with osteopenia defined by WHO criteria. Comparison exam(s): There is a statistically significant, 4.2% increase inbone density throughout the lumbar spine compared to 09/13/2014. Approximately 1.4%decrease in bone mineral density throughout the proximal left femur compared to 09/13/2014. IMPRESSION: Osteopenia by WHO criteria. This patient has a 10% risk of majorosteoporotic fracture and a 1.7% risk of hip fracture over the next 10 years. (WorldHealth Organization Fracture Risk Assessment) [facility] Department of Internal Medicine recommendsusing National Osteoporosis Foundation (NOF) guidelines in treatment decisions related toosteoporosis. NOF guidelines suggest considering treatment for postmenopausal women and menaged 50 or older presenting with the following: History of hip or vertebral fracture. T-score = -2.5 (DXA) at the femoral neck, total hip, or spine, afterappropriate evaluation to exclude secondary causes. Low bone mass (T-score between -1.0 and -2.5 at the femoral neck or spine)AND a 10-year probability of a hip fracture = 3% OR a 10-year probability of a majorosteoporosis-related fracture = 20% based on the [place]-adapted WHO algorithm Please note that all treatment decisions require clinical judgment andconsideration of individual patient factors, including patient preferences, co- morbidities,previous drug use, risk factors not captured in the FRAX model (e.g., frailty, falls, vitaminD deficiency, increased bone turnover, interval significant decline in bone density) andpossible under- or over-estimation of fracture risk by FRAX. Optional alternative screening schedule based on christ Sharpe., [facility]January 2011 for patients with osteopenia (based on hip BMD T-score) is as follows: * advanced osteopenia (T scores -2.00 to -2.49), BMD testing every year * moderate osteopenia (T scores -1.50 to -1.99), BMD testing every 5years mild osteopenia or normal BMD (T scores -1.50 and higher), BMD testingevery 15 years Alla Heredia DO IM DXA PROCEDURE S Final Result * Hepatitis C Screening (09/06/2014) [facility] Hepatitis C Screening Abstracted Historical Provider HEALTH MAINTENANCE Final Result from Last 3 Months or Most Recently Relevant to Health Maintenance Insurance [employer] MED[employer]ARE [employer]VANTAGE Care Teams 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
--- OUTSIDE RECORDS SUMMARY | 2025-08-31 09:14 | XMS_ITS ---
Author Name [facility] Organization Unknown Care Team Organization Name Specialty Phone Email Start Date End Da te [facility] AYAN CHEN Primary Care 03/08/2023 [facility] Termed, PROVIDER Primary Care 08/07/202204/30
== END 2025-08-31 15:06 | disposition home or self-care (01) ==
LOC: HO.HSMS 08:55
PROVIDERS: PCP Internal Medicine; Visit Provider Nurse Practitioner Family
DX: G20.A1 Parkinson's disease without dyskinesia, without mention of fluctuations (principal); R26.9 Unspecified abnormalities of gait and mobility; R41.89 Other symptoms and signs involving cognitive functions and awareness
CPT/HCPCS: 99214